=== PATIENT | male | born 2005 | race African-American/Black ===

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

== ENCOUNTER 2023-11-14 23:21 | Emergency (ER) | payer MEDICAID ==
[~2023-11-14] VITALS: Ht 185.4 cm; Wt 86.0 kg
[~2023-11-14 23:21] MED LIST: IBUP-2028 MT
[2023-11-14 23:27] VITALS: BP 156/97; PULSE 118; RESP 16; TEMP 98.4; O2SAT 97
== END 2023-11-15 03:48 | disposition left against medical advice (07) ==
LOC: ER 23:21
DX: R51.9 Headache, unspecified (principal); Z53.21 Procedure and treatment not carried out due to patient leaving prior to being seen by health care provider